=== PATIENT | male | born 2000 | race Caucasian/White ===

== ENCOUNTER 2020-11-11 19:36 | Emergency (ER) | payer OTHER ==
[~2020-11-11] VITALS: Ht 175.3 cm; Wt 127.3 kg
[2020-11-11 19:41] VITALS: TEMP 98
[2020-11-11 20:44] VITALS: BP 124/78; PULSE 82
== END 2020-11-11 20:44 | disposition home or self-care (01) ==
LOC: COL.ER 19:36
DX: S06.0X0A Concussion without loss of consciousness, initial encounter (principal); Z88.1 Allergy status to other antibiotic agents; V89.2XXA Person injured in unspecified motor-vehicle accident, traffic, initial encounter

== ENCOUNTER 2021-05-02 21:00 | Emergency (ER) | payer BC ==
[~2021-05-02] VITALS: Ht 175.3 cm; Wt 159.1 kg
[2021-05-02 21:07] VITALS: TEMP 97.3
[2021-05-02 21:36] VITALS: BP 141/81; PULSE 86
== END 2021-05-02 21:36 | disposition home or self-care (01) ==
LOC: COL.ER 21:00
DX: H11.33 Conjunctival hemorrhage, bilateral (principal)